=== PATIENT | male | born 1985 | race Two or more races ===

== ENCOUNTER 2020-08-07 12:29 | Emergency (ER) | payer OTHER ==
[~2020-08-07] VITALS: Ht 175.3 cm; Wt 68.0 kg
[2020-08-07 12:48] VITALS: BP 146/81
[2020-08-07] MEDS ORDERED: TDAP [DIPH/PERTUSSIS/TET] 0.5 ML VIAL IM ONE ×2 (13:00→13:09)
[2020-08-07] MEDS ORDERED: BACI/NEOM/POLY B OINT PKT 1 UDPKT PACKET TP ONE (13:00)
[2020-08-07] MEDS ORDERED: BACITRACIN ZINC OINT PACKET 1 EA PACKET TP ONE (13:09)
--- NOTE | 2020-08-07 13:34 | NUR ---
pt is medically cleared for booking and released under the care of [employer] officers in stable condition. Pt is ambulatory on stead gait.
== END 2020-08-07 13:36 ==
LOC: ER 12:37
DX: S61.210A Laceration without foreign body of right index finger without damage to nail, initial encounter (principal); W22.8XXA Striking against or struck by other objects, initial encounter; Y93.89 Activity, other specified; Y92.89 Other specified places as the place of occurrence of the external cause; Y99.8 Other external cause status
CPT/HCPCS: 90471; 90715; 99283; A6403